=== PATIENT | female | born 1990 | race African-American/Black ===

== ENCOUNTER 2017-05-08 17:11 | Emergency (ER) | payer SELFPAY ==
[~2017-05-08] VITALS: Ht 165.1 cm; Wt 83.0 kg
[2017-05-08 17:12] VITALS: BP 132/89; PULSE 90; RESP 18; TEMP 97.6; O2SAT 100
[2017-05-08] MEDS ORDERED: OSEL75 PO (18:58)
[2017-05-08] MEDS ORDERED: ZITHTAB PO (18:58)
--- NOTE | 2017-05-08 18:58 | PD ---
HPI Chief Complaint: Cold / Flu Symptoms Time Seen by Provider: 18:47 Travel History International Travel<30 days: No Contact w/Intl Traveler<30days: No Traveled to known affect area: No History of Present Illness HPI 26 years old female complains of sore throat, coughing congestion, chest wall pain. Patient states that the symptoms started about 4 days ago . Patient states that she was exposed to sick patients recently. Patient states that the cough is persistent and mildly productive. Patient states that she had chest wall pain with coughing. Patient states that she has mild abdominal wall pain with coughing also. Patient denies any nausea vomiting diarrhea. Patient denies any fever chills. 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 Reported Meds & Prescriptions Reported Meds & Active Scripts Active No Active Prescriptions or Reported Medications Review of Systems General / Constitutional: No: Fever Eyes: No: Visual changes HENT: Positive: Sore Throat, No: Headaches Cardiovascular: Positive: Chest Pain or Discomfort Respiratory: Positive: Cough, Shortness of Breath Gastrointestinal: No: Abdominal Pain Genitourinary: No: Dysuria Musculoskeletal: No: Pain Skin: No Rash Neurologic: No: Weakness Psychiatric: No: Depression Endocrine: No: Polydipsia Hematologic/Lymphatic: No: Easy Bruising Physical Exam Narrative GENERAL: Well-nourished, well-developed patient. SKIN: Focused skin assessment warm/dry. HEAD: Normocephalic. EYES: No scleral icterus. No injection or drainage. TM: Clear. Throat: Mild erythematous. NECK: Supple, trachea midline. No JVD or lymphadenopathy. No meningismus CARDIOVASCULAR: Regular rate and rhythm without murmurs, gallops, or rubs. RESPIRATORY: Breath sounds equal bilaterally. No accessory muscle use. GASTROINTESTINAL: Abdomen soft, non-tender, nondistended. MUSCULOSKELETAL: No cyanosis, or edema. BACK: Nontender without obvious deformity. No CVA tenderness. Neurologic exam normal. Data Data Last Documented VS Vital Signs Date Time Temp Pulse Resp B/P (MAP) Pulse Ox O2 Delivery O2 Flow Rate FiO2 05/08/17 17:12 97.6 90 18 132/89 (103) 100 MDM Medical Decision Making Medical Screen Exam Complete: Yes Emergency Medical Condition: Yes Differential Diagnosis Differential diagnoses including viral syndrome, otitis media, pharyngitis, bronchitis, pneumonia. Narrative Course 26 years old female with sore throat, cough and congestion, body ache, chest wall pain, Diagnosis Primary Impression: Bronchitis Additional Impression: Viral syndrome Patient Instructions: General Instructions Additional Instructions: Tamiflu and Z-Anshu as directed. Tylenol and Motrin aching pain and fever. Over- the-counter cough medication as directed. Follow-up with personal physician. Return if worse. Med/Other Pt SpecificInfo: Prescription(s) given Scripts Azithromycin (Zithromax Z-Anshu) 250 Mg Dspk 250 MG PO DIRECTED for Infection, #1 DSPK 0 Refills 500 MG (2 tabs) day 1, then 1 tab days 2-5. Prov: Mike Michelle MD 05/08/17 Oseltamivir (Tamiflu) 75 Mg Cap 75 MG PO BID for Mgmt Viral Infection, #10 CAP 0 Refills Prov: Mike Michelle MD 05/08/17 Disposition: 01 DISCHARGE HOME Condition: Stable Mike Michelle MD May 08, 2017 18:58
== END 2017-05-08 19:25 | disposition home or self-care (01) ==
LOC: NEPD 17:11
DX: J40 Bronchitis, not specified as acute or chronic (principal); B34.9 Viral infection, unspecified
CPT/HCPCS: 99283